=== PATIENT | female | born 1995 | race African-American/Black ===

== ENCOUNTER 2017-04-27 21:20 | Inpatient (IN) | payer OTHER ==
[2017-04-27 22:24] LABS: Hematocrit 35 % (35-47); Hemoglobin 11.2 g/dl (12.0-16.0); Mean Corpuscular HGB Conc 33 g/dl (31-36); Mean Corpuscular Hemoglobin 25 pg (27-31); Mean Corpuscular Volume 77 fL (80-97); Mean Platelet Volume 7 um3 (7.4-10.4); Red Blood Count 4.51 10^6/ul (4.0-5.4); Red Cell Distribution Width 16 % (10.5-15); White Blood Count 9.4 10^3/ul (3.5-10.8)
[2017-04-27 22:39] LABS: ALT 11 U/L (7-52); AST 11 U/L (13-39); Albumin 4.4 g/dL (3.2-5.2); Alkaline Phosphatase 79 U/L (34-104); Anion Gap 7 mmol/L (2-11); BUN/Creatinine Ratio 9.7 (8-20); Blood Urea Nitrogen 9 mg/dL (6-24); CO2 Carbon Dioxide 27 mmol/L (22-32); Calcium 9.7 mg/dL (8.6-10.3); Chloride 102 mmol/L (101-111); EGFR African American 99.9 (>60); EGFR Non-African American 77.7 (>60); Globulin 3.6 g/dL (2-4); Glucose 91 mg/dL (70-100); Potassium 3.6 mmol/L (3.5-5.0); Sodium 136 mmol/L (133-145)
[2017-04-27 22:42] LABS: Acetaminophen < 15 mcg/mL; Alcohol < 10 mg/dL (<10); Salicylate < 2.50 mg/dL (<30)
[2017-04-27 22:58] LABS: TSH (Thyroid Stimulating Horm) 1.96 mcIU/mL (0.34-5.60)
[2017-04-27 23:07] LABS: Urine Bacteria Absent (Absent); Urine Bilirubin Negative (Negative); Urine Glucose Negative (Negative); Urine Nitrite Negative (Negative)
[2017-04-27 23:18] LABS: Benzodiazepine Urine Screen None Detected (None Detect)
[2017-04-28] MEDS ORDERED: Al Hydrox/Mg Hydrox/Simet LIQ* 30 ML UDC PO PRN (09:34)
[2017-04-28] MEDS: Vitamin THERAPEUTIC TAB PO SCH (09:41)
[2017-04-28] MEDS: Acetaminophen TAB* 325 MG PO PRN ×2 (09:41→20:46)
[2017-04-28] MEDS ORDERED: traZODone TAB* 50 MG TAB PO PRN (17:45)
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
[2017-04-29] MEDS ORDERED: buPROPion SR TAB.SR* 100 MG PO SCH ×2 (09:00→17:00)
[2017-04-29] MEDS: Vitamin THERAPEUTIC TAB PO SCH (09:24)
[2017-04-29] MEDS: Acetaminophen TAB* 325 MG PO PRN (09:24)
[2017-04-29] MEDS: guaiFENesin ER TAB 600 MG PO SCH ×2 (12:53→21:44)
[2017-04-29] MEDS: Oxymetazoline 0.05% NASAL SPR* 15 ML BTL BOTH NARES SCH ×2 (12:54→21:44)
--- NOTE | 2017-04-29 13:14 | PN ---
Subjective - Subjective Service Type: 35599 Hosp care 25 min moderate complexity Subjective: Patient reports continued depressed mood, frequent crying and "bad thoughts." She states she had difficulty falling asleep and was awake until 0300. She endorses excessive guilt/shame, hopelessness and helplessness. SHe states she tried to pray to God but could only say "I'm sorry." She states she had a dream that her mother was present on the unit and she was hiding from her. Patient is agreeable to reach out to her academic mentor and her hair tinter. She denies side effects from wellbutrin initial dose and agrees to titration. She agrees to utilize trazodone as a scheduled medication temporarily to improve sleep hygiene. Patient reports headache, malaise, neck strain and sinus congestion. She received apap with good effect and also utilized afrin nasal spray and guaifenisin. Objective - Appearance Appearance: Well Developed/Nourished Dysmorphic Features: Yes Hygiene: Normal Grooming: Fairly Well Kept - Behavior Psychomotor Activities: Abnormal-Decreased Exhibits Abnormal Movement: Yes - Attitude and Relatedness Attitude and Relatedness: Well Related Eye Contact: Poor - Speech Quality: Unpressured Latencies: Normal Quantity: Appropriate - Mood Patient's Decription of Mood: "a hot mess" - Affect Observed Affect: Depressed Affect Consistent with: Dysphoria - Thought Process Patient's Thought Process: Coherent Thought Content: Yes Passive Wish, No Suicidal Planning, No Homicidal Ideation, No Paranoid Ideation - Sensorium Experiencing Hallucinations: No, Sensorium is Clear Type of Hallucinations: Visual: No, Auditory: No, Command: No - Level of Consciousness Level of Consciousness: Alert Orientation: Yes Intact, Yes Orientated to Time, Yes Orientated to Place, Yes Orientated to Person - Impulse Control Impulse Control: Poor - Insight and Judgement Insight and Judgement: Fair - Group Participation Particating in Group Activities: Yes - Medication Management Medication Management Adherence: Yes Assessment - Assessment Merits Inpatient Hospitalization: For Immediate Safety, For Stabilization, To Initiate Treatment Inpatient DSM-IV Dx: major depressive d/o, severe, recurrent Clinical Impression: [place] born 21yo female, [employer] sophomore. Attempted to OD on Nyquil 2 nights in a row last week. Disclosed to her friends who connected her with manager software, who brought her to ED. Continues to be ambivalent about being alive. She merits hospitalization for immediate safety, evaluation and stabilization. Plan - Plan Treatment Plan: Name: LAKHWINDER ESCALANTE Birthdate: 1995 [id number] continue acute intensive psychiatric treatment. increase buproprion and change trazodone to scheduled dosing. decrease to 30min observation, allow computer privileges and staff pass. Continued Medication Management: Start Medication Medications: Current Medications Acetaminophen (Tylenol Tab*) 650 mg PO Q4H PRN PRN Reason: PAIN or TEMP > 101 F Last Admin: 04/29/17 09:24 Dose: 650 mg Al Hydrox/Mg Hydrox/Simethicone (Maalox Plus*) 30 ml PO Q4H PRN PRN Reason: INDIGESTION Bupropion HCl (Wellbutrin Xl *) 150 mg PO DAILY [facility] PRN Reason: Protocol Bupropion HCl (Wellbutrin Sr Tab*) 100 mg PO 0800,1700 [facility] Stop: 04/29/17 18:00 Diphenhydramine HCl (Benadryl Po*) 50 mg PO BEDTIME PRN PRN Reason: INSOMNIA Guaifenesin (Mucinex*) 600 mg PO BID [facility] Last Admin: 04/29/17 12:53 Dose: 600 mg Multivitamins (Theragran Tab*) 1 tab PO DAILY [facility] Last Admin: 04/29/17 09:24 Dose: 1 tab Oxymetazoline HCl (Afrin 0.05% Nasal [place]*) 1 spray BOTH NARES BID [facility] Last Admin: 04/29/17 12:54 Dose: 1 spray Trazodone HCl (Desyrel Tab*) 50 mg PO BEDTIME [facility] - Discharge Plan Discharge Plan: Outpatient Follow Up Outpatient Program: Counseling/Psych Services at [place]
[2017-04-29] MEDS: traZODone TAB* 50 MG TAB PO SCH (21:44)
[2017-04-30] MEDS: Oxymetazoline 0.05% NASAL SPR* 15 ML BTL BOTH NARES SCH ×2 (08:16→20:58)
[2017-04-30] MEDS: guaiFENesin ER TAB 600 MG PO SCH ×2 (08:17→20:58)
[2017-04-30] MEDS: Vitamin THERAPEUTIC TAB PO SCH (08:17)
[2017-04-30] MEDS: BuPROPion XL* 150 MG TAB.XL PO SCH (08:17)
[2017-04-30] MEDS: Acetaminophen TAB* 325 MG PO PRN (08:17)
[2017-04-30] MEDS: traZODone TAB* 50 MG TAB PO SCH (20:58)
[2017-05-01] MEDS: Oxymetazoline 0.05% NASAL SPR* 15 ML BTL BOTH NARES SCH ×2 (08:48→21:37)
[2017-05-01] MEDS: guaiFENesin ER TAB 600 MG PO SCH ×2 (08:49→21:36)
[2017-05-01] MEDS: Vitamin THERAPEUTIC TAB PO SCH (08:49)
[2017-05-01] MEDS: BuPROPion XL* 150 MG TAB.XL PO SCH (08:49)
--- NOTE | 2017-05-01 19:14 | PN ---
Subjective - Subjective Date of Service: 05/01/17 Service Type: 49683 Hosp care 15 min low complexity Subjective: Lydia has been visible in the milieu enjoyin company of peers and lots of visitors. During the assessment she reports that she feels safe here and hasn't been feeling suicidal anymore. Complaining of dull headache. Denies hallucinations or delusions. Objective - Appearance Appearance: Obese Dysmorphic Features: No Hygiene: Normal Grooming: Well Kept - Behavior Psychomotor Activities: Normal Exhibits Abnormal Movement: No - Attitude and Relatedness Attitude and Relatedness: Appropriate Eye Contact: Good - Speech Quality: Unpressured Latencies: Normal Quantity: Appropriate - Mood Patient's Decription of Mood: "Okay" - Affect Observed Affect: Non-labile Affect Consistent with: Dysphoria - Thought Process Patient's Thought Process: Coherent, Goal Directed Thought Content: No Passive Wish, No Suicidal Planning, No Homicidal Ideation, No Paranoid Ideation - Sensorium Experiencing Hallucinations: No, Sensorium is Clear Type of Hallucinations: Visual: No, Auditory: No, Command: No - Level of Consciousness Level of Consciousness: Alert Orientation: Yes Intact, Yes Orientated to Time, Yes Orientated to Place, Yes Orientated to Person - Impulse Control Impulse Control: Intact - Insight and Judgement Insight and Judgement: Fair - Group Participation Particating in Group Activities: Yes - Medication Management Medication Management Adherence: Yes Assessment - Assessment Merits Inpatient Hospitalization: For Immediate Safety, For Stabilization, Consolidate Improvements, Pending Safe DC Plan Inpatient DSM-IV Dx: major depressive d/o, severe, recurrent Plan - Plan Treatment Plan: Name: LYDIA ESCALANTE Birthdate: 1995 [id number] Continued Medication Management: Continue Outpt Medication Medications: Current Medications Acetaminophen (Tylenol Tab*) 650 mg PO Q4H PRN PRN Reason: PAIN or TEMP > 101 F Last Admin: 04/30/17 08:17 Dose: 650 mg Al Hydrox/Mg Hydrox/Simethicone (Maalox Plus*) 30 ml PO Q4H PRN PRN Reason: INDIGESTION Bupropion HCl (Wellbutrin Xl *) 150 mg PO DAILY LI PRN Reason: Protocol Last Admin: 05/01/17 08:49 Dose: 150 mg Diphenhydramine HCl (Benadryl Po*) 50 mg PO BEDTIME PRN PRN Reason: INSOMNIA Last Admin: 04/30/17 21:00 Dose: 50 mg Guaifenesin (Mucinex*) 600 mg PO BID [facility] Last Admin: 05/01/17 08:49 Dose: 600 mg Multivitamins (Theragran Tab*) 1 tab PO DAILY [facility] Last Admin: 05/01/17 08:49 Dose: 1 tab Oxymetazoline HCl (Afrin 0.05% Nasal [place]*) 1 spray BOTH NARES BID [facility] Last Admin: 05/01/17 08:48 Dose: 1 spray Trazodone HCl (Desyrel Tab*) 50 mg PO BEDTIME [facility] Last Admin: 04/30/17 20:58 Dose: 50 mg - Discharge Plan Discharge Plan: Outpatient Follow Up Outpatient Program: Counseling/Psych Services at [place]
[2017-05-01] MEDS: traZODone TAB* 50 MG TAB PO SCH (21:36)
[2017-05-02] MEDS: Oxymetazoline 0.05% NASAL SPR* 15 ML BTL BOTH NARES SCH (08:26)
[2017-05-02] MEDS: guaiFENesin ER TAB 600 MG PO SCH (08:27)
[2017-05-02] MEDS: BuPROPion XL* 150 MG TAB.XL PO SCH (08:27)
[2017-05-02] MEDS: Vitamin THERAPEUTIC TAB PO SCH (08:27)
[2017-05-02 14:09] VITALS: BP 143/72
--- NOTE | 2017-05-02 15:29 | DS ---
DATE OF ADMISSION: 04/28/2017. DATE OF DISCHARGE: 05/02/2017. SUPERVISING PSYCHIATRIST: Dr. Francisco Adams * (dictated by ANDRIA Castro ). DISCHARGE DIAGNOSES: Major depressive disorder, moderate, recurrent. CONDITION AT THE TIME OF DISCHARGE: Improved. The patient is euthymic with a bright affect. She reports eagerness to be discharged and resume her academic coursework. She has made plans to stay with a friend and mentor over the break in [place]. She reports that she has been more sociable here on the unit and benefitted from interactions with peers and staff. The patient reports "I've chosen to stay alive." She also reports feeling physically better since having cold symptoms over the weekend. She is agreeable to follow-up with [facility] for an initial appointment this week and for continuing therapy when courses resume after the winter. MENTAL STATUS EXAM AT THE TIME OF DISCHARGE: The patient is a tall, well-built , -[place] female. She is well-groomed with long black hair, wearing spectacles and her own clothing. She appears somewhat older than stated age. Her posture is erect and she is cooperative. She answers questions fully. She demonstrates good insight and is a good historian. She is alert and oriented times three. Her eye contact is good. Her mood is "good." Memory is 3/3. Concentration is good. Her affect is full and congruent. Speech is soft and articulate. Thought process is logical, goal directed and coherent. Content of thought is negative SI or passive wish. She denies HI or and A/V hallucinations. Her judgement is good. Her fund of knowledge is excellent. DISCHARGE INSTRUCTIONS: Discharge instructions will be given to the patient. A. Medications: Bupropion XL 150 mg p.o. daily, Trazodone 50 mg p.o. at bedtime, Guaifenesin 600 mg b.i.d. prn congestion, Afrin nasal spray one spray both nares b.i.d. prn congestion. The above were electronically prescribed to [facility]. B. Diet: Regular. C. Activities: Ambulation as tolerated. Tobacco cessation is not applicable. There are no pending labs or diagnostic studies at the time of discharge. D. Follow-up care: The patient was referred to [facility] and has an initial appointment today at 3:00 p.m. She was also [facility] as a resource to talk about past trauma. Lydia can follow-up with [facility] primary care as needed. E. Substance abuse follow-up: Not applicable. HOSPITAL COURSE - PART A: Reason for admission: The patient presented to the emergency department by [facility] after she disclosed to her friends two suicide attempts last week. Her friends took her to the [place] financial investment manager who referred her to the emergency department for mental health evaluation. HOSPITAL COURSE - PART B: Psychiatric treatment rendered: The patient was admitted to the Adult Behavioral Services Unit on involuntary status. Code status is full. Safety checks every 15 minutes. She was encouraged to participate in therapeutic milieu, individual sessions with staff and psychoeducational groups. The patient was given safety plan to identify options and barriers over the winter break from school. She agreed to a trial of Wellbutrin for depression and Trazodone as need for sleep. The patient tolerated these well and these were prescribed as standing medications. Wellbutrin was increased to XL formulary at 150 mg. Trazodone continued at 50 mg. The patient reported improvement in sleep and mood over the course of the hospitalization. She presented with upper respiratory infection symptoms. She was afebrile. She agreed to Afrin nasal spray and Mucinex for congestion and these proved to be efficacious. Lab work done during the patient's admission: Her CBC was grossly unremarkable. Her sickle cell screening was negative. Her CMP was within normal limits. TSH 1.96. Urinalysis was likely a contaminated specimen. The patient denied signs and symptoms of UTI. Toxicology was only positive for cannabinoids and this is congruent with the patient's report. After the patient's cold symptoms resolved, she was interactive and social with select peers and staff. She was safe on all checks and she was decreased to 30 minute observation, allowed use of computer for discharge planning and allowed to go on staff pass. The patient denied suicidal ideation. She demonstrated forward thinking and was agree to suggestions, including continued aftercare. The patient requested discharge today and due to obligation to treat in a less restrictive setting, this was decided upon by treatment team. She will follow- up with [facility] for posthospitalization appointment today. The patient is encouraged to call this unit with any questions or concerns after discharge. She states willingness to utilize ED should symptoms worsen. EMILIE JOINER, PATIENT EXPERIENCE COORDINATOR [id number]/[facility] #: [id number] [facility]
== END 2017-05-02 14:15 | disposition home or self-care (01) | DRG 885 ==
LOC: ED 21:20 → BSU 04-28 09:31
PROVIDERS: ADMIT Psychiatry & Neurology Psychiatry; ATTEND Psychiatry & Neurology Psychiatry
DX: F33.1 Major depressive disorder, recurrent, moderate (principal)
CPT/HCPCS: 36415; 80053; 80307; 80320; 80329; 81003; 81015; 84443; 85025; 85660; 99222; 99231; 99232; 99238; A9270-GY; G0480